=== PATIENT | female | born 1930 | race Caucasian/White ===

== ENCOUNTER 2017-01-11 10:39 | Emergency (ER) | payer OTHER ==
[~2017-01-11] VITALS: Ht 160 cm; Wt 90.0 kg
[~2017-01-11 10:39] MED LIST: AMLO-147 PO; CHOL500020 PO; CYAN50003 PO; FURO40TA4 PO; LISI10TA2 PO; OXYB5TAB22 PO
[2017-01-11 10:48] VITALS: Ht 160 cm; Wt 90.0 kg
--- NOTE | 2017-01-11 11:08 | ERA ---
ER Documentation Chief Complaint Date/Time DATE: 01/11/17 TIME: 11:08 Chief Complaint Chill HPI The patient is a 86-year-old, presenting with chill and vague abdominal discomfort, associated with nausea and frequent urination this morning. She denies nasal congestion, nasal discharge, cough, neck pain, chest pain, dyspnea. She denies any abdominal pain now, denies diarrhea. She does not smoke nor drink Past medical history: Hypertension, chronic low back pain, COPD Past surgical history: Cholecystectomy ROS All systems reviewed and are negative except as per history of present illness. Medications Home Meds Active Scripts Azithromycin* (Zithromax*) 250 Mg Tablet, 250 MG PO .ZPACK DIRECTED, #6 TAB TAKE 500 MG (2 TABS) THE FIRST DAY THEN 250 MG (1 TAB) DAYS 2-5 Prov:MARK BLANKENSHIP MD 01/11/17 Ibuprofen* (Motrin*) 600 Mg Tab, 600 MG PO Q6, #20 TAB Prov:MARK BLANKENSHIP MD 01/11/17 Reported Medications Loratadine* (Loratadine*) 10 Mg Tablet, 10 MG PO DAILY, #30 TAB 01/11/17 Escitalopram Oxalate* (Lexapro*) 10 Mg Tablet, 10 MG PO DAILY, #30 TAB 01/11/17 Oxybutynin Chloride* (Ditropan* XL) 5 Mg Tabsr, 5 MG PO DAILY, TAB.SA 01/11/17 Cholecalciferol* (Vitamin D3*) 1,000 Unit Tablet, 1000 UNIT PO DAILY, TAB 01/11/17 Atorvastatin* (Atorvastatin*) 40 Mg Tablet, 40 MG PO QHS, #30 TAB 01/11/17 Omeprazole* (Omeprazole*) 20 Mg Capsule.dr, 20 MG PO DAILY, #30 CAP 01/11/17 Mometasone-Formoterol (Dulera) 100-5 Mcg - 13 Gm Hfa.aer.ad, 2 PUFFS INHALATION BID, #1 INHALER 01/11/17 Tiotropium [place]* (Spiriva*) 18 Mcg Cap.w.dev, 1 CAP INHALATION DAILY, #30 CAP 01/11/17 Benazepril Hcl* (Benazepril Hcl*) 40 Mg Tablet, 40 MG PO DAILY, #30 TAB 01/11/17 Furosemide* (Furosemide*) 20 Mg Tablet, 20 MG PO DAILY, #60 TAB 01/11/17 Amlodipine Besylate* (Norvasc*) 5 Mg Tablet, 5 MG PO DAILY, TAB 01/11/17 Discontinued Reported Medications Furosemide (Lasix) 40 Mg Tab, 40 MG PO EVERY OTHER DAY 10/17/12 Cholecalciferol (Vitamin D3) 50,000 Unit Capsule, 09958 UNIT PO DAILY 10/17/12 Cyanocobalamin* (Vitamin B-12* ODT) 5,000 Mcg Tab.rapdis, 2500 MCG PO ONCE A WEEK 10/17/12 Oxybutynin Chloride* (Ditropan* XL) 5 Mg Tabsr, 5 MG PO BID 10/17/12 Lisinopril* (Lisinopril*) 10 Mg Tablet, 10 MG PO DAILY 10/17/12 Amlodipine Besylate* (Amlodipine Besylate*) 10 Mg Tablet, 10 MG PO DAILY 10/17/12 Allergies Allergies: Coded Allergies: levofloxacin (Verified Allergy, Unknown, DIARRHEA , RASH, 01/11/17) PMhx/Soc History of Surgery: Yes (CHOLECYSTECTOMY) Anesthesia Reaction: No Hx Neurological Disorder: No Hx Respiratory Disorders: Yes (CHRONIC BRONCHITIS) Hx Cardiac Disorders: No Hx Psychiatric Problems: No Hx Alcohol Use: No Hx Substance Use: No Hx Tobacco Use: No Physical Exam Vitals Vital Signs Date Time Temp Pulse Resp B/P Pulse Ox O2 Delivery O2 Flow Rate FiO2 01/11/17 16:47 98.9 70 18 138/71 99 Room Air 01/11/17 16:00 66 20 138/62 98 Nasal Cannula 2.0 01/11/17 13:58 99.1 72 18 141/55 98 Nasal Cannula 2.0 01/11/17 12:30 100.8 88 18 157/60 98 Nasal Cannula 2.0 01/11/17 12:15 Nasal Cannula 2 01/11/17 10:48 101.1 88 20 221/128 99 Physical Exam Const: No acute distress. Head: Atraumatic. Eyes: Normal Conjunctiva. ENT: Normal External Ears, Nose and Mouth. Neck: Full range of motion. No meningismus. Resp: Clear to auscultation bilaterally. Cardio: Regular rate and rhythm. Abd: Soft, non distended, normal bowel sounds, non tender. Skin: No petechiae or rashes. Back: No midline or flank tenderness. Ext: No cyanosis, or edema. Neur: Awake and alert. No focal deficit Psych: Normal Mood and Affect. Result Diagram: 01/11/17 1150 01/11/17 1150 Results 24 hrs Laboratory Tests Test 01/11/17 11:50 01/11/17 13:55 White Blood Count 10.610^3/ul Red Blood Count 4.1610^6/ul Hemoglobin 12.7g/dl Hematocrit 38.7% Mean Corpuscular Volume 93.0fl Mean Corpuscular Hemoglobin 30.5pg Mean Corpuscular Hemoglobin Concent 32.8g/dl Red Cell Distribution Width 13.8% Platelet Count 34976^3/UL Mean Platelet Volume 9.8fl Neutrophils % 86.6% Lymphocytes % 5.6% Monocytes % 7.2% Eosinophils % 0.2% Basophils % 0.1% Nucleated Red Blood Cells % 0.0/100WBC Neutrophils # 9.210^3/ul Lymphocytes # 0.610^3/ul Monocytes # 0.810^3/ul Eosinophils # 0.010^3/ul Basophils # 0.010^3/ul Nucleated Red Blood Cells # 0.010^3/ul Prothrombin Time 13.2Sec Prothrombin Time Ratio 1.1 INR International Normalized Ratio 1.00 Activated Partial Thromboplast Time 27.7Sec Urine Color YELLOW Urine Clarity CLEAR Urine pH 8.0 Urine Specific [place] 1.012 Urine Ketones TRACEmg/dL Urine Nitrite NEGATIVEmg/dL Urine Bilirubin NEGATIVEmg/dL Urine Urobilinogen NEGATIVEmg/dL Urine Leukocyte Esterase NEGATIVELeu/ul Urine Hemoglobin NEGATIVEmg/dL Urine Glucose NEGATIVEmg/dL Urine Total Protein NEGATIVEmg/dl Sodium Level 137mmol/L Potassium Level 4.3mmol/L Chloride Level 102mmol/L Carbon Dioxide Level 29mmol/L Anion Gap 10 Blood Urea Nitrogen 22mg/dl Creatinine 0.70mg/dl Glucose Level 155mg/dl Lactic Acid Level 1.2mmol/L 1.1mmol/L Calcium Level 9.5mg/dl Total Bilirubin 0.6mg/dl Direct Bilirubin 0.00mg/dl Indirect Bilirubin 0.6mg/dl Aspartate Amino Transf (AST/SGOT) 55IU/L Alanine Aminotransferase (ALT/SGPT) 55IU/L Alkaline Phosphatase 131IU/L Troponin I < 0.012ng/ml Total Protein 7.1g/dl Albumin 3.9g/dl Globulin 3.20g/dl Albumin/Globulin Ratio 1.21 Current Medications Medications (Trade) Dose Ordered Sig/Dinah Route PRN Reason Start Time Stop Time Status Last Admin Dose Admin Acetaminophen (Tylenol Supp) 650 mg ONCE STAT MA 01/11/17 11:15 01/11/17 11:17 DC 01/11/17 12:06 Ondansetron HCl (Zofran Inj) 4 mg ONCE STAT IV 01/11/17 11:15 01/11/17 11:17 DC 01/11/17 12:06 Procedures/[place] [id number] Radiology Main Line: [phone] DIAGNOSTIC IMAGING REPORT Patient: ULYSSES EPPS : 1930 Age: 86 Sex: F MR #: [id number] DOS: 01/11/17 1115 Ordering MD: MARK BLANKENSHIP MD Location: E/R Room/Bed: PROCEDURE: XR Chest 1 view. CLINICAL INDICATION: Shortness of breath. TECHNIQUE: AP views of the chest were obtained. COMPARISON: CT October 17, 2012 FINDINGS: The heart is large. Calcified atherosclerosis is noted in the aorta. Calcified pleural plaques are seen over the periphery of both lungs. Marked pleural thickening is identified over the right upper and mid lung. There is associated right-sided volume loss. Diffuse interstitial prominence is seen in both lungs. Scattered atelectasis is noted in the bilateral lower lobes. No consolidations are identified. No pneumothorax is seen. Osseous structures are intact. IMPRESSION: Cardiomegaly with calcified atherosclerosis in the aorta. Calcified pleural plaques over both sides of the chest. Query prior asbestos exposure. Pleural thickening over the right upper and mid lung. Finding could reflect a true soft tissue thickening versus loculated fluid. Appearance is similar to quartz miner blasting film from prior CT. Diffuse mild interstitial prominence in both lungs. Interstitial prominence may be chronic. Scattered atelectasis in the bilateral lower lobes. If further characterization of the chest is needed CT should be considered. RPTAT: AA .Moises Marie, MD, Date Time Electronically viewed and signed by .Moises Salazar MD, MD on 01/11/2017 12:42 .P/ CC: MARK BLANKENSHIP MD [place] [id number] Radiology Main Line: [phone] DIAGNOSTIC IMAGING REPORT Patient: ULYSSES EPPS : 1930 Age: 86 Sex: F MR #: [id number] DOS: 01/11/17 1304 Ordering MD: MARK BLANKENSHIP MD Location: E/R Room/Bed: PROCEDURE: CT Chest without contrast. CLINICAL INDICATION: Cough and fever. TECHNIQUE: Multiple contiguous helical CT images of the chest were obtained without the administration of intravenous contrast. Coronal and sagittal reformatted images were obtained from the source images. CTDIvol (mGy): 15.67; Total Exam DLP (mGy-cm): 692.78. One or more of the following dose reduction techniques were utilized: - Automated exposure control. - Adjustment of the mA and/or kV according to patient size. - Use of iterative reconstruction technique. COMPARISON: Chest x-ray 01/11/2017. CT chest 10/17/2012. CT abdomen/pelvis . FINDINGS: Limited imaging of the lower neck demonstrates a large 3.4 cm cystic nodule of the right lobe of the thyroid, which is unchanged. The remainder of the gland is heterogeneous in density. The heart is mildly enlarged. There is no pericardial effusion. There is no mediastinal, hilar or axillary lymphadenopathy. The thoracic aorta is normal in caliber with atherosclerotic calcification. The pulmonary arteries are not enlarged. Scattered calcified pleural plaques are seen throughout the left chest. There is an old loculated collection of pleural fluid with concentric pleural thickening and calcification within the lateral aspect of the right upper chest , which is stable. Scattered scarring is seen within the right lung and is stable. There is no evidence of new pulmonary parenchymal abnormality. Focal bronchiectasis with mucus plugging is seen within the right lower lobe and is grossly unchanged. Scattered few tiny tree in bud nodules are also present compatible with bronchiolitis. Limited imaging of the upper abdomen demonstrates evidence of cholecystectomy. Intrahepatic biliary duct dilatation has increased. Degenerative changes of the spine are present. Chest wall soft tissues are unremarkable. IMPRESSION: Chronic loculated pleural fluid within the right upper thorax, unchanged. Scattered calcified pleural plaques throughout the left hemithorax which may reflect prior asbestos exposure or old pleural space infection/inflammation/ trauma. Stable inflammatory bronchiolitis of the right lower lobe. Cholecystectomy with increased intrahepatic biliary duct dilatation. Correlate with appropriate clinical data. RPTAT: HLST .Denia Ng MD, Date Time Electronically viewed and signed by .Denia Ng MD, MD on 01/11/2017 15:50 .T/ CC: MARK BLANKENSHIP MD EKG: Read by emergency physician Rate/Rhythm: Normal Sinus Rhythm 91 beats/min QRS, ST, T-waves: No ST elevation, no T inversion, premature ventricular complexes, right bundle branch block, left anterior fascicular block Impression: Abnormal EKG MEDICAL MAKING DECISION: The patient is a 86-year-old female, presenting with acute febrile illness of unclear etiology. She was very anxious upon arrival, her blood pressure improved without intervention. She is stable for outpatient follow-up. She was treated with Tylenol for fever and Zofran for now sent with good response. The differential diagnoses considered include but are not limited to influenza, viral syndrome, pneumonia, cystitis Departure Diagnosis: Primary Impression: Acute febrile illness Condition: Good Comments She was discharged with Motrin I discussed the findings with the patient. I advised the patient to follow-up with the primary physician in about 1-2 days, sooner if needed and return if any concern. MARK BLANKENSHIP MD Jan 11, 2017 11:08
[2017-01-11] MEDS ORDERED: ONDANSETRON 4 MG INJ IV STA (11:15)
[2017-01-11] MEDS ORDERED: ACETAMINOPHEN 650 MG SUPP PR STA (11:15)
[2017-01-11 12:16] LABS: ABNORMAL IP MESSAGE 1; BASOPHILS % 0.1 % (0.0-2.0); EOSINOPHILS % 0.2 % (0.0-7.0); HEMATOCRIT 38.7 % (37.0-47.0); HEMOGLOBIN 12.7 g/dl (12.0-16.0); LYMPHOCYTES # 0.6 10^3/ul (0.8-2.9); LYMPHOCYTES % 5.6 % (15.0-51.0); MEAN CORPUSCULAR HEMOGLOBIN 30.5 pg (29.0-33.0); MEAN CORPUSCULAR HGB CONC 32.8 g/dl (32.0-37.0); MEAN PLATELET VOLUME 9.8 fl (7.4-10.4); MONOCYTE # 0.8 10^3/ul (0.3-0.9); MONOCYTES % 7.2 % (0.0-11.0); NEUTROPHIL # 9.2 10^3/ul (1.6-7.5); NEUTROPHILS % 86.6 % (39.0-77.0); PLATELET COUNT 202 10^3/UL (140-415); RED BLOOD COUNT 4.16 10^6/ul (4.20-5.40); RED CELL DISTRIBUTION WIDTH 13.8 % (11.5-14.5); WHITE BLOOD COUNT 10.6 10^3/ul (4.8-10.8)
[2017-01-11 12:21] LABS: ADD UMIC NO; UR ASCORBIC ACID NEGATIVE (NEGATIVE); UR BILIRUBIN (Dip) NEGATIVE (NEGATIVE); UR BLOOD (Dip) NEGATIVE (NEGATIVE); UR CLARITY CLEAR (CLEAR); UR COLOR YELLOW (YELLOW); UR GLUCOSE (Dip) NEGATIVE (NEGATIVE); UR KETONES (Dip) TRACE mg/dL (NEGATIVE); UR LEUKOCYTE ESTERASE (Dip) NEGATIVE Leu/ul (NEGATIVE); UR NITRITE (Dip) NEGATIVE (NEGATIVE); UR SPECIFIC GRAVITY (Dip) 1.012 (1.003-1.030); UR TOTAL PROTEIN (Dip) NEGATIVE (NEGATIVE); UR UROBILINOGEN (Dip) NEGATIVE (NEGATIVE)
[2017-01-11 12:23] LABS: POSITIVE DIFF @See below
[2017-01-11 12:37] LABS: ALANINE AMINOTRANSFERASE 55 IU/L (13-69); ALBUMIN 3.9 g/dl (3.3-4.9); ALBUMIN/GLOBULIN RATIO 1.21; ALKALINE PHOSPHATASE 131 IU/L (42-121); ANION GAP 10 (8-16); ASPARTATE AMINO TRANSFERASE 55 IU/L (15-46); BILIRUBIN,INDIRECT 0.6 mg/dl (0-1.1); BILIRUBIN,TOTAL 0.6 mg/dl (0.2-1.3); BLOOD UREA NITROGEN 22 mg/dl (7-20); CALCIUM 9.5 mg/dl (8.4-10.2); CARBON DIOXIDE 29 mmol/L (21-31); CHLORIDE 102 mmol/L (97-110); GLUCOSE 155 mg/dl (70-220); POTASSIUM 4.3 mmol/L (3.5-5.1); SODIUM 137 mmol/L (135-144); TOTAL PROTEIN 7.1 g/dl (6.1-8.1)
[2017-01-11 12:39] LABS: PT RATIO 1.1
--- NOTE | 2017-01-11 12:42 | RADRPT ---
PROCEDURE: XR Chest 1 view. CLINICAL INDICATION: Shortness of breath. TECHNIQUE: AP views of the chest were obtained. COMPARISON: CT October 17, 2012 FINDINGS: The heart is large. Calcified atherosclerosis is noted in the aorta. Calcified pleural plaques are seen over the periphery of both lungs. Marked pleural thickening is identified over the right upper and mid lung. There is associated right-sided volume loss. Diffuse interstitial prominence is see n in both lungs. Scattered atelectasis is noted in the bilateral lower lobes. No consolidations are identified. No pneumothorax is seen. Osseous structures are intact. IMPRESSION: Cardiomegaly with calcified atherosclerosis in the aorta. Calcified pleural plaques over both sides of the chest. Query prior asbestos exposure. Pleural thickening over the right upper and mid lung. Finding could reflect a true soft tissue thic kening versus loculated fluid. Appearance is similar to prop worker film from prior CT. Diffuse mild interstitial prominence in both lungs. Interstitial prominence may be chronic. Scattered atelectasis in the bilateral lower lobes. If further characterization of the chest is needed CT should be considered. RPTAT: AA .Moises Salazar MD, MD Date Time Electronically viewed and signed by .Moises Salazar MD, on 01/11/2017 12:42 .P/
[2017-01-11 12:49] LABS: TROPONIN-I < 0.012 ng/ml (0.00-0.12)
[2017-01-11] MEDS ORDERED: FURO20TA3 PO (12:59)
[2017-01-11] MEDS ORDERED: BENA40TA41 PO (12:59)
[2017-01-11] MEDS ORDERED: AMLO5TAB4 PO (12:59)
[2017-01-11] MEDS ORDERED: MOME13HF2 INHALATION (13:00)
[2017-01-11] MEDS ORDERED: TIOT18CA INHALATION (13:00)
[2017-01-11] MEDS ORDERED: OXYB5TAB22 PO (13:01)
[2017-01-11] MEDS ORDERED: OMEP20CA16 PO (13:01)
[2017-01-11] MEDS ORDERED: CHOL100062 PO (13:01)
[2017-01-11] MEDS ORDERED: ATOR40TA68 PO (13:01)
[2017-01-11] MEDS ORDERED: LORA10TA3 PO (13:02)
[2017-01-11] MEDS ORDERED: ESCI10TA PO (13:02)
[2017-01-11 13:25] LABS: PROTIME 13.2 Sec (12.2-14.2)
[2017-01-11 13:44] LABS: PARTIAL THROMBOPLASTIN TIME 27.7 Sec (25.0-35.0)
--- NOTE | 2017-01-11 15:51 | RADRPT ---
PROCEDURE: CT Chest without contrast. CLINICAL INDICATION: Cough and fever. TECHNIQUE: Multiple contiguous helical CT images of the chest were obtained without the administra tion of intravenous contrast. Coronal and sagittal reformatted images were obtained from the source images. CTDIvol (mGy): 15.67; Total Exam DLP (mGy-cm): 692.78. One or more of the following dose reduction techniques were utilized: - Automated exposure control. - Adjustment of the mA and/or kV according to patient size. - Use of iterative reconstruction technique. COMPARISON: Chest x-ray 01/11/2017. CT chest 10/17/2012. CT abdomen/pelvis 10/17/2012. FINDINGS: Limited imaging of the lower neck demonstrates a large 3.4 cm cystic nodule of the right lobe of the thyroid, which is unchanged. The remainder of the gland is heterogeneous in density. The heart is mildly enlarged. There is no pericardial effusion. There is no mediastinal, hilar or axillary lymphadenopathy. The thoracic aorta is normal in caliber with atherosclerotic calcificatio n. The pulmonary arteries are not enlarged. Scattered calcified pleural plaques are seen throughout the left chest. There is an old loculated co llection of pleural fluid with concentric pleural thickening and calcification within the lateral as pect of the right upper chest, which is stable. Scattered scarring is seen within the right lung and is stable. There is no evidence of new pulmonary parenchymal abnormality. Focal bronchiectasis with mucus plugging is seen within the right lower lobe and is grossly unchanged. Scattered few tiny keon e in bud nodules are also present compatible with bronchiolitis. Limited imaging of the upper abdomen demonstrates evidence of cholecystectomy. Intrahepatic biliary duct dilatation has increased. Degenerative changes of the spine are present. Chest wall soft tissues are unremarkable. IMPRESSION: Chronic loculated pleural fluid within the right upper thorax, unchanged. Scattered calcified pleural plaques throughout the left hemithorax which may reflect prior asbestos exposure or old pleural space infection/inflammation/trauma. Stable inflammatory bronchiolitis of the right lower lobe. Cholecystectomy with increased intrahepatic biliary duct dilatation. Correlate with appropriate clin ical data. RPTAT: HLST .Denia Ng MD, MD Date Time Electronically viewed and signed by .Denia Ng MD, on 01/11/2017 15:50 .T/
[2017-01-11] MEDS ORDERED: AZIT250T94 PO (16:12)
[2017-01-11] MEDS ORDERED: IBUP-1542 PO (16:12)
[2017-01-11 16:47] VITALS: BP 138/71; PULSE 70; RESP 18; TEMP 98.9
== END 2017-01-11 16:58 | disposition home or self-care (01) ==
LOC: E/R 10:39
DX: R50.9 Fever, unspecified (principal); R11.0 Nausea; I10 Essential (primary) hypertension; J44.0 Chronic obstructive pulmonary disease with (acute) lower respiratory infection; R40.2142 Coma scale, eyes open, spontaneous, at arrival to emergency department; R40.2252 Coma scale, best verbal response, oriented, at arrival to emergency department
CPT/HCPCS: 36415; 71010; 71250; 80053; 81003; 83605; 84484; 85025; 85610; 85730; 87040; 87086; 93005; 96374; J2405; Z7502; Z7610

== ENCOUNTER 2017-01-11 22:15 | Emergency (ER) | payer SELFPAY ==
[~2017-01-11] VITALS: Ht 162.6 cm; Wt 104.5 kg
[~2017-01-11 22:15] MED LIST changes: +AMLO5TAB4 PO; +ATOR40TA68 PO; +AZIT250T94 PO; +BENA40TA41 PO; +CHOL100062 PO; +ESCI10TA PO; +FURO20TA3 PO; +IBUP-1542 PO; +LORA10TA3 PO; +MOME13HF2 INHALATION; +OMEP20CA16 PO; +TIOT18CA INHALATION
[2017-01-11 22:20] VITALS: Ht 162.6 cm; Wt 104.5 kg
== END 2017-01-11 22:39 | disposition left against medical advice (07) ==
LOC: E/R 22:15
DX: Z53.21 Procedure and treatment not carried out due to patient leaving prior to being seen by health care provider (principal)